=== PATIENT | male | born 1955 | race Caucasian/White ===

== ENCOUNTER 2017-07-15 17:26 | Inpatient (IN) | payer OTHER ==
[~2017-07-15] VITALS: Ht 175.3 cm; Wt 72.6 kg
[2017-07-15] MEDS ORDERED: QUET50TA PO (17:31)
[2017-07-15] MEDS ORDERED: LORAZEPAM 2MG/ML CPJ IV ONE (18:30)
[2017-07-15] MEDS ORDERED: LEVOFLOXACIN 750MG PREMIX 150 ML IV ONE (18:30)
[2017-07-15] MEDS ORDERED: SODIUM CHLORIDE 0.9% 1000ML BAG (SEPSIS BOLUS) IV ONE (18:30)
[2017-07-15 19:08] LABS: HEMATOCRIT. 54.4 % (42.0-52.0); HEMOGLOBIN. 18.6 g/dL (14.0-18.0); MEAN CORPUSCULAR HEMOGLOBIN 30.1 pg (28.0-32.0); MEAN CORPUSCULAR VOLUME 88.1 fL (80.0-94.0); PLATELET 421 x1000/uL (130-400); RED BLOOD CELL COUNT 6.17 mill/uL (4.7-6.1)
[2017-07-15 19:15] LABS: CHLORIDE 93 mEq/L (98-107)
[2017-07-15 19:16] LABS: INR 1.1
[2017-07-15 19:21] LABS: CARBON DIOXIDE 20 mEq/L (21-32)
[2017-07-15 19:28] LABS: TROPONIN I < 0.02 ng/mL (0.00-0.04)
[2017-07-15 19:30] LABS: PLATELET ESTIMATE SLIGHTLY INCREASED
[2017-07-15] MEDS ORDERED: LACTATED RINGERS 1,000 ML IV SCH ×2 (20:30→22:45)
[2017-07-16] VITALS (8 sets, daily range): BP systolic 92–106; BP diastolic 52–70
[2017-07-16 00:43] LABS: CLARITY URINE CLOUDY (CLEAR); COLOR URINE YELLOW (YELLOW); KETONES URINE NEGATIVE (NEGATIVE); LEUKOCYTE ESTERASE URINE 2+ (NEGATIVE); NITRITE URINE NEGATIVE (NEGATIVE); OCCULT BLOOD URINE 3+ (NEGATIVE); PROTEIN URINE 1+ (NEGATIVE); SPECIFIC GRAVITY URINE 1.018 (1.005-1.030); UROBILINOGEN URINE 0.2 E.U./dL (0.2-1.0)
[2017-07-16] MEDS ORDERED: OXYC-523 PO (01:03)
[2017-07-16] MEDS ORDERED: LISI-604 PO (01:03)
[2017-07-16] MEDS ORDERED: sodium chloride PO (01:03)
[2017-07-16] MEDS ORDERED: ENOXAPARIN 40MG/0.4ML SYR SUBCUT SCH (08:00)
[2017-07-16] MEDS ORDERED: DIPHENHYDRAMINE 50MG/ML VIAL IV PRN (08:00)
[2017-07-16] MEDS ORDERED: CLONIDINE 0.1MG TABLET PO PRN (08:00)
[2017-07-16] MEDS ORDERED: IPRATROPIUM/ALBUTEROL 0.5-3(2.5)MG/3ML NEB INH PRN (08:00)
[2017-07-16] MEDS ORDERED: MAGNESIUM/ALUMINUM HYDROXIDE/SIMETHICONE 30ML UDC PO PRN (08:00)
[2017-07-16] MEDS ORDERED: ACETAMINOPHEN 650MG SUPP PR PRN (08:00)
[2017-07-16] MEDS ORDERED: SODIUM CHLORIDE 0.45% 1,000 ML IV SCH (08:00)
[2017-07-16] MEDS ORDERED: ACETAMINOPHEN 325MG TABLET PO PRN (08:00)
[2017-07-16] MEDS ORDERED: GUAIFENESIN 200MG/10ML SUGAR FREE UDC PO PRN (08:00)
[2017-07-16] MEDS ORDERED: ONDANSETRON HCL 4MG/2ML VIAL IV PRN (08:00)
[2017-07-16] MEDS ORDERED: DOCUSATE SODIUM 100MG CAPSULE PO PRN (08:00)
[2017-07-16] MEDS ORDERED: ACETAMINOPHEN 650MG/20.3ML UDC GT PRN (08:00)
[2017-07-16] MEDS ORDERED: ENOXAPARIN 30MG/0.3ML SYR SUBCUT SCH (09:00)
[2017-07-16] MEDS ORDERED: CEFTRIAXONE 1 G PREMIX 50 ML IV SCH (09:00)
[2017-07-16 11:21] LABS: CARBON DIOXIDE 17 mEq/L (21-32); CHLORIDE 101 mEq/L (98-107); PHOSPHORUS 6.2 mg/dL (2.5-4.9)
[2017-07-16 12:11] LABS: CLARITY URINE CLOUDY (CLEAR); COLOR URINE YELLOW (YELLOW); KETONES URINE TRACE (NEGATIVE); LEUKOCYTE ESTERASE URINE 1+ (NEGATIVE); NITRITE URINE NEGATIVE (NEGATIVE); OCCULT BLOOD URINE 2+ (NEGATIVE); PROTEIN URINE NEGATIVE (NEGATIVE); SPECIFIC GRAVITY URINE 1.018 (1.005-1.030); UROBILINOGEN URINE 0.2 E.U./dL (0.2-1.0)
[2017-07-16 12:47] LABS: *AMPHETAMINES SCREEN URINE NEGATIVE (NEGATIVE); *BARBITURATES SCREEN URINE NEGATIVE (NEGATIVE); *BENZODIAZEPINES SCREEN URINE NEGATIVE (NEGATIVE); *COCAINE SCREEN URINE NEGATIVE (NEGATIVE); CANNABINOID URINE SCREEN NEGATIVE (NEGATIVE); METHADONE URINE SCREEN NEGATIVE (NEGATIVE); OPIATES URINE SCREEN PRESUMTIVE POSITIVE (NEGATIVE); PHENCYCLIDINE URINE SCREEN NEGATIVE (NEGATIVE)
[2017-07-16] MEDS ORDERED: SODIUM CHLORIDE 0.9% 1,000 ML IV SCH (13:00)
[2017-07-16 13:21] LABS: BG BASE EXCESS -8.5 mmol/L (-2.0-2.0); BG FRACTION INSPIRED OXYGEN 21; BG HCO3 ACT 14.3 mmol/L (22.0-26.0); BG METHEMOGLOBIN 0.6 % (0.0-1.5); BG OXYHEMOGLOBIN 96.4 % (94.0-97.0); BG PCO2 25.1 mmHg (35.0-45.0); BG PH 7.374 (7.350-7.450); BG PO2 91.5 mmHg (75.0-100.0); BG SAMPLE SITE RIGHT RADIAL; BG TOTAL HEMOGLOBIN 17.8 g/dL (12.0-18.0); BG VENT MODE ROOM AIR
[2017-07-16 13:21] LABS: HEPATITIS B SURFACE ANTIGEN NEGATIVE
[2017-07-16 13:47] LABS: HEPATITIS B CORE AB IGM NEGATIVE
[2017-07-16 13:48] LABS: HEPATITIS A AB IGM NEGATIVE (NEGATIVE)
[2017-07-16] MEDS: LANTHANUM CARBONATE 500MG CHEW TABLET PO SCH ×2 (14:00→18:18)
[2017-07-16] MEDS: SODIUM CHLORIDE 0.9% INJ 3ML FLUSH IVF SCH ×2 (14:00→21:33)
[2017-07-16] MEDS ORDERED: SODIUM BICARBONATE 50 MEQ in SODIUM CHLORIDE 0.45% 1,000 ML IV SCH (14:15)
== END 2017-07-16 22:10 | disposition short-term general hospital (02) | DRG 683 ==
LOC: ER 17:55 → 7WST 20:27 → EDBEDREQSVC 20:30 → EDBEDREQTM 20:30 → EDBEDREQ 20:30 → ENRESERV 21:15 → 7WST 07-16 01:21
PROVIDERS: ADMIT Family Medicine; ATTEND Family Medicine
DX: N17.9 Acute kidney failure, unspecified (principal); E87.2 Acidosis; E11.22 Type 2 diabetes mellitus with diabetic chronic kidney disease; D75.1 Secondary polycythemia; E83.39 Other disorders of phosphorus metabolism; E83.52 Hypercalcemia; I12.0 Hypertensive chronic kidney disease with stage 5 chronic kidney disease or end stage renal disease; J98.11 Atelectasis; N39.0 Urinary tract infection, site not specified; E87.1 Hypo-osmolality and hyponatremia; N18.6 End stage renal disease; E86.9 Volume depletion, unspecified; R62.7 Adult failure to thrive; Z93.3 Colostomy status; Z88.5 Allergy status to narcotic agent
CPT/HCPCS: 36415; 36600; 70450; 71010; 76770; 80053; 80305; 81001; 82375; 82805; 82962; 83605; 83735; 84100; 84484; 85025; 85610; 86705; 86709; 86803; 87040; 87077; 87086; 87186; 87340; 93005; 96365; 96366; 96375; 97162; 99291; C1893; J0696; J1650; J1956; J2060; J3490; J7030; J7040; J7120